=== PATIENT | male | born 1950 | race Two or more races ===

== ENCOUNTER 2018-07-23 12:07 | Emergency (ER) | payer OTHER ==
[~2018-07-23] VITALS: Ht 170.2 cm; Wt 77.1 kg
[2018-07-23 12:10] VITALS: BP 123/70
== END 2018-07-23 13:04 | disposition left against medical advice (07) ==
LOC: ER 12:19
DX: M79.671 Pain in right foot (principal); E11.22 Type 2 diabetes mellitus with diabetic chronic kidney disease; I12.0 Hypertensive chronic kidney disease with stage 5 chronic kidney disease or end stage renal disease; N18.6 End stage renal disease; Z99.2 Dependence on renal dialysis; Z53.29 Procedure and treatment not carried out because of patient's decision for other reasons

== ENCOUNTER 2018-07-27 11:55 | Emergency (ER) | payer OTHER ==
[~2018-07-27] VITALS: Ht 165.1 cm; Wt 79.4 kg
[2018-07-27] MEDS ORDERED: SODIUM CHLORIDE 0.9% 1,000 ML IV ONE (12:34)
[2018-07-27] MEDS ORDERED: cefTRIAXone 1GM/50ML D5W 50 ML IV ONE (12:45)
[2018-07-27] MEDS ORDERED: METOCLOPRAMIDE HCL 5MG/ml INJ 2ml VIAL IV ONE (12:45)
[2018-07-27] MEDS ORDERED: HYDROmorphone HCL 2 MG/ML VL IV ONE (12:45)
[2018-07-27] MEDS ORDERED: ACETAMINOPHEN 500 MG TAB PO ONE (13:30)
[2018-07-27 14:36] LABS: Basophils # (auto) 0.1 uL; Basophils % (auto) 0.6 % (0.0-2.0); Eosinophils # (auto) 0 uL; Eosinophils % (auto) 0.1 % (0.0-7.0); Hematocrit 35.5 % (41.0-53.0); Hemoglobin 11.8 g/dL (13.5-17.5); Lymphocytes # (auto) 0.6 uL; Lymphocytes % (auto) 4.4 % (10.0-50.0); Mean Corpuscular Hemoglobin 31.6 pg (28.0-32.0); Mean Corpuscular Hgb Conc. 33.2 g/dL (32.0-36.0); Monocytes # (auto) 1.5 uL; Monocytes % (auto) 10.2 % (0.0-12.0); Neutrophils # (auto) 12.5 uL; Neutrophils % (auto) 84.7 % (37.0-80.0); Platelet Count (auto) 150 10^3/uL (140-450); Red Blood Cells 3.74 10^6/uL (4.5-5.90); Red Cell Distribution Width 14.8 % (11.8-14.3); White Blood Cell 14.7 10^3/uL (4.4-10.8)
[2018-07-27 14:48] LABS: INR 1.13 (0.9-1.15); Partial Thromboplastin Time 33.8 sec (23.64-32.05)
[2018-07-27 14:50] LABS: Albumin 2.9 g/dL (3.4-5.0); BUN/Creatinine Ratio 5.5; Calcium 9.2 mg/dL (8.5-10.1); Magnesium 2.5 mg/dL (1.6-2.6); Potassium 4.1 mmol/L (3.5-5.1)
[2018-07-27] MEDS ORDERED: VANCOMYCIN 1GM/250ML 250 ML IV ONE (17:30)
[2018-07-27 20:09] VITALS: BP 124/63
== END 2018-07-27 20:36 | disposition short-term general hospital (02) ==
LOC: ER 11:55 → EDBD 11:55 → ER 20:36
DX: M00.871 Arthritis due to other bacteria, right ankle and foot (principal); R50.9 Fever, unspecified; M86.9 Osteomyelitis, unspecified; I73.9 Peripheral vascular disease, unspecified; E11.621 Type 2 diabetes mellitus with foot ulcer; L97.519 Non-pressure chronic ulcer of other part of right foot with unspecified severity; E11.22 Type 2 diabetes mellitus with diabetic chronic kidney disease; I12.0 Hypertensive chronic kidney disease with stage 5 chronic kidney disease or end stage renal disease; N18.6 End stage renal disease; E44.0 Moderate protein-calorie malnutrition; E11.21 Type 2 diabetes mellitus with diabetic nephropathy; I25.810 Atherosclerosis of coronary artery bypass graft(s) without angina pectoris; I48.91 Unspecified atrial fibrillation; Z95.1 Presence of aortocoronary bypass graft; Z79.4 Long term (current) use of insulin; Z99.2 Dependence on renal dialysis; Z68.29 Body mass index [BMI] 29.0-29.9, adult; Z94.0 Kidney transplant status
CPT/HCPCS: 36415; 71046; 73700; 80053; 83735; 85025; 85610; 85730; 87040; 87077; 87186; 87205; 93005; 93926; 96365; 96367; 96375; 99285; J0696; J1170; J2765; J3370; 81001